=== PATIENT | male | born 1995 | race African-American/Black ===

== ENCOUNTER 2016-12-06 01:12 | Emergency (ER) | payer MEDICAID, OTHER ==
[~2016-12-06] VITALS: Ht 167.6 cm; Wt 62.0 kg
[~2016-12-06 01:12] MED LIST: ALBU6.7H INH
[2016-12-06] MEDS ORDERED: IPRATROPIUM BROMIDE (0.02%) 0.5MG/2.5ML NEB HHN NR (02:53)
[2016-12-06] MEDS ORDERED: ALBUTEROL (0.083%) 2.5MG/3ML NEB HHN NR ×2 (02:53→03:06)
[2016-12-06] MEDS ORDERED: PREDNISONE 20MG TABLET PO NR (03:00)
[2016-12-06] MEDS ORDERED: ALBUTEROL (0.083%) 2.5MG/3ML NEB HHN STA (04:08)
[2016-12-06] MEDS ORDERED: IPRATROPIUM BROMIDE (0.02%) 0.5MG/2.5ML NEB HHN STA (04:08)
[2016-12-06 06:58] VITALS: BP 118/70
== END 2016-12-06 06:58 | disposition home or self-care (01) ==
LOC: ER 01:13
DX: J45.901 Unspecified asthma with (acute) exacerbation (principal)
CPT/HCPCS: 94640; 94644; 99285; J7512; J7611; 94664

== ENCOUNTER 2020-02-02 14:29 | Emergency (ER) | payer OTHER ==
[~2020-02-02] VITALS: Ht 170.2 cm; Wt 59.0 kg
[~2020-02-02 14:29] MED LIST changes: -ALBU6.7H INH; +ALBU6.7H11 INH
[2020-02-02] MEDS ORDERED: FLUORESCEIN SODIUM 1MG/STRIP RIGHTEYE ONE (15:30)
[2020-02-02] MEDS ORDERED: TETRACAINE 0.5% OPHTH DROPS 4ML RIGHTEYE ONE (15:30)
[2020-02-02] MEDS ORDERED: ACETAMINOPHEN 325MG TABLET PO ONE (17:15)
[2020-02-02 18:25] VITALS: BP 118/60
== END 2020-02-02 18:26 | disposition home or self-care (01) ==
LOC: ER 14:44
DX: S02.2XXA Fracture of nasal bones, initial encounter for closed fracture (principal); S01.81XA Laceration without foreign body of other part of head, initial encounter; M25.561 Pain in right knee; J45.909 Unspecified asthma, uncomplicated; Y04.0XXA Assault by unarmed brawl or fight, initial encounter; Y93.89 Activity, other specified; Y92.89 Other specified places as the place of occurrence of the external cause; Y99.8 Other external cause status
CPT/HCPCS: 12011; 70486; 71045; 73562; 99284

== ENCOUNTER 2020-02-05 09:17 | Emergency (ER) | payer OTHER ==
[~2020-02-05] VITALS: Ht 167.6 cm; Wt 61.0 kg
[2020-02-05 09:24] VITALS: BP 110/62
== END 2020-02-05 10:16 | disposition home or self-care (01) ==
LOC: ER 09:17
DX: S02.2XXA Fracture of nasal bones, initial encounter for closed fracture (principal); S80.02XA Contusion of left knee, initial encounter; J45.909 Unspecified asthma, uncomplicated; Z79.899 Other long term (current) drug therapy; Y04.0XXA Assault by unarmed brawl or fight, initial encounter; Y93.89 Activity, other specified; Y92.89 Other specified places as the place of occurrence of the external cause; Y99.8 Other external cause status
CPT/HCPCS: 99282

== ENCOUNTER 2020-02-25 11:35 | Emergency (ER) | payer OTHER ==
[~2020-02-25] VITALS: Ht 167.6 cm; Wt 62.0 kg
[2020-02-25] MEDS ORDERED: IBUPROFEN 400MG TABLET PO ONE (12:45)
[2020-02-25 14:01] VITALS: BP 114/67
== END 2020-02-25 14:03 | disposition home or self-care (01) ==
LOC: ER 11:35
DX: M25.562 Pain in left knee (principal)
CPT/HCPCS: 73562; 99283